=== PATIENT | female | born 1995 | race Asian ===

== ENCOUNTER 2019-12-16 22:06 | Emergency (ER) | payer OTHER ==
[~2019-12-16] VITALS: Ht 162.6 cm; Wt 63.5 kg
[2019-12-16 22:20] VITALS: BP 128/75
--- NOTE | 2019-12-16 22:20 | NUR ---
ED Nurse Note: Pt walked into ED for c/o lower abdominal pain and hematuria x2 days. Reports nausea/ vomiting. Denies pain while urinating. Afebrile. Not in any distress.
--- NOTE | 2019-12-16 22:30 | NUR ---
ED Nurse Note: Urine specimen collected and sent to lab.
--- NOTE | 2019-12-16 22:39 | NUR ---
ED Nurse Note: ERMD at bedside.
--- NOTE | 2019-12-16 22:43 | Emergency Room Report ---
History of Present Illness General Chief Complaint: Female Urogenital Problems Source: Patient Present Illness HPI Patient with 3 days of abdominal pain. Her last menstruation was last week. She has hematuria at this time. She had severe pain last night. It was more to the right of her bellybutton. The pain is better at this time. She is taking [id number] pain medication. The pain is now rated 2/10 and she declines any more pain medication. Seen at urgent care with negative ultrasound and WBC in urine. Family members are concerned that she has appendicitis. No fevers, chills, sore throat, chest pain, palpitations, nausea, vomiting, diarrhea, dysuria, shortness of breath, joint pain, rashes, dizziness, headache. Allergies: Coded Allergies: No Known Allergies (Unverified , 12/16/19) Patient History Past Medical History: see triage record Social History: Denies: smoking Social History Narrative With friends Last Menstrual Period: 12/05/19 Now: No : 0 Para: 0 Reviewed Nursing Documentation: PMH: Agreed; PSxH: Agreed Nursing Documentation-PMH Past Medical History: No Stated History Review of Systems All Other Systems: negative except mentioned in HPI Physical Exam Vital Signs Date Time Temp Pulse Resp B/P (MAP) Pulse Ox O2 Delivery O2 Flow Rate FiO2 12/16/19 22:14 98.4 77 18 128/75 (92) 97 Room Air Sp02 EP Interpretation: reviewed, normal General Appearance: well appearing, no apparent distress, GCS 15 Head: normocephalic Eyes: bilateral eye normal inspection, bilateral eye PERRL ENT: moist mucus membranes Respiratory: lungs clear, normal breath sounds Cardiovascular #1: regular rate, rhythm Gastrointestinal: normal bowel sounds, soft, no guarding, no rebound, tenderness - Right lower abdomen Genitourinary: no CVA tenderness Musculoskeletal: gait/station normal Neurologic: alert, oriented x3, normal inspection Psychiatric: mood/affect normal Skin: no rash, warm/dry Medical Decision Making Diagnostic Impression: Primary Impression: Abdominal pain Qualified Codes: R10.31 - Right lower quadrant pain Additional Impression: Hemorrhagic cystitis ER Course Patient presents with abdominal pain with hematuria. Differential includes renal stone, , urinary tract infection, appendicitis amongst others. Urinalysis and test are indicated. Patient declines pain medication at this time. The fact that ultrasound was done at urgent care suggest renal stone. Based on lack of fever and improvement in exam suggest no appendicitis. Urinalysis with pyuria. Patient agreed to take Tylenol. Pain completely resolved. Soft abdomen. Discussed results with patient and friends. Multiple questions answered. Described treatment plan. Discussed possible etiologies of pain. Discussed outpatient observation. Patient stable for outpatient observation. Laboratory Tests Test 12/16/19 22:30 Urine Color [place] Urine Appearance Cloudy Urine pH 5 (4.5-8.0) Urine Specific [place] 1.025 (1.005-1.035) Urine Protein 3+ (NEGATIVE) H Urine Glucose (UA) Negative (NEGATIVE) Urine Ketones 2+ (NEGATIVE) H Urine Blood 5+ (NEGATIVE) H Urine Nitrite Positive (NEGATIVE) H Urine Bilirubin 1+ (NEGATIVE) H Urine Ictotest Pending Urine Urobilinogen 4 MG/DL (0.0-1.0) H Urine Leukocyte Esterase 2+ (NEGATIVE) H Urine RBC Tntc /HPF (0 - 2) H Urine WBC 10-15 /HPF (0 - 2) H Urine Squamous Epithelial Cells Few /LPF (NONE/OCC) Urine Bacteria Moderate /HPF (NONE) H Urine HCG, Qualitative Negative (NEGATIVE) Last Vital Signs Date Time Temp Pulse Resp B/P (MAP) Pulse Ox O2 Delivery O2 Flow Rate FiO2 12/17/19 00:02 97.8 80 19 125/69 97 Room Air Status: improved Disposition: HOME, SELF-CARE Condition: Improved Scripts Acetaminophen (Tylenol) 325 Mg Tablet 650 MG ORAL Q6H PRN for Prn Pain/Headache/Temp > 101, #20 TAB 0 Refills Prov: Memo Parsons MD 12/17/19 Nitrofurantoin Monohyd/M-Cryst* (MACROBID 100 MG*) 100 Mg Capsule 100 MG ORAL EVERY 12 HOURS, #14 CAP Prov: Memo Parsons MD 12/17/19 Memo Parsons MD Dec 16, 2019 22:43
[2019-12-16 23:17] LABS: APPEARANCE,URINE CLOUDY; BILIRUBIN, URINE 1+ (NEGATIVE); GLUCOSE, URINE (UA) NEGATIVE (NEGATIVE); KETONES,URINE 2+ (NEGATIVE); LEUKOCYTE ESTERASE ,URINE 2+ (NEGATIVE); NITRITE,URINE POSITIVE (NEGATIVE); PH,URINE 5 (4.5-8.0); PROTEIN,URINE 3+ (NEGATIVE); UROBILINOGEN,URINE 4 MG/DL (0.0-1.0)
[2019-12-16 23:29] LABS: COLOR,URINE AMBER
[2019-12-17] MEDS ORDERED: TYLENOL325 MG ORAL
[2019-12-17] MEDS ORDERED: NITROFURANTOIN100 M2 ORAL
[2019-12-17 00:02] VITALS: BP 125/69
--- NOTE | 2019-12-17 00:02 | NUR ---
ED Nurse Note: Pt cleared by ERMD for discharge. DC instructions/prescription was given and explained to pt and verbalized understanding of teachings. All medical deviecs such as ID band removed. Pt is AAO x4, ambulatory and left with all personal belongings. Accompanied her friends.
== END 2019-12-17 00:02 | disposition home or self-care (01) ==
LOC: EMR 22:39
DX: R10.31 Right lower quadrant pain (principal); N30.91 Cystitis, unspecified with hematuria
CPT/HCPCS: 81003; 81025; 87086; 99283